=== PATIENT | female | born 1940 | race African-American/Black ===

== ENCOUNTER 2018-07-08 14:25 | Emergency (ER) | payer MEDICARE, MEDICAID ==
[~2018-07-08] VITALS: Ht 167.6 cm; Wt 78.0 kg
[2018-07-08] MEDS ORDERED: HYDROCODONE/ACETAMINOPHEN 5/325MG TABLET PO ONE (15:15)
[2018-07-08] MEDS ORDERED: IBUPROFEN 600MG TABLET PO ONE (15:15)
[2018-07-08 17:11] VITALS: BP 107/62
== END 2018-07-08 18:35 | disposition home or self-care (01) ==
LOC: ER 14:25
DX: S09.8XXA Other specified injuries of head, initial encounter (principal); S30.0XXA Contusion of lower back and pelvis, initial encounter; I10 Essential (primary) hypertension; Y08.89XA Assault by other specified means, initial encounter; Y93.89 Activity, other specified; Y92.89 Other specified places as the place of occurrence of the external cause; Y99.8 Other external cause status
CPT/HCPCS: 71045; 99284